=== PATIENT | female | born 1945 | race Caucasian/White ===

== ENCOUNTER 2019-06-22 09:00 | Outpatient (RCR) | payer MEDICARE, SELFPAY | END 2019-07-06 11:39 | disposition home or self-care (01) | LOC: PT.CARL 09:00 | PROVIDERS: Visit Provider Family Medicine | DX: M54.5 Low back pain (principal) | CPT/HCPCS: 97010; 97012; 97014; 97110; 97140; 97163; G0283 ==

== ENCOUNTER → 2019-12-09 10:24 | Outpatient (CLI) | payer MEDICARE, SELFPAY ==
[2019-12-09 16:36] LABS: Alanine Aminotransferase 21 U/L (12-78); Albumin Level 2.7 gm/dL (3.4-5.0); Alkaline Phosphatase 158 U/L (46-116); Aspartate Amino Transferase 23 U/L (15-37); Bilirubin,Direct 0.1 mg/dL (0.0-0.2); Bilirubin,Indirect 0.4 mg/dL (0.0-0.9); Bilirubin,Total 0.5 mg/dL (0.2-1.0); Total Protein,Serum 6.5 gm/dL (6.4-8.2)
== END ==
PROVIDERS: Visit Provider Podiatrist
DX: R94.5 Abnormal results of liver function studies (principal)
CPT/HCPCS: 36415; 80076

== ENCOUNTER 2021-03-06 11:00 | Outpatient (RCR) | payer MEDICARE, SELFPAY | END 2021-03-20 13:48 | disposition home or self-care (01) | LOC: PT.CARL 11:00 | PROVIDERS: Visit Provider Nurse Practitioner Family | DX: M79.604 Pain in right leg (principal) | CPT/HCPCS: 97110; 97140; 97163 ==

== ENCOUNTER 2022-04-11 10:00 | Outpatient (RCR) | payer MEDICARE, SELFPAY ==
--- NOTE | 2022-02-19 13:00 | HMH.PTOPEV ---
PT Outpatient Evaluation Rehab PT Outpatient Evaluation Start: 02/19/22 12:12 Freq: Status: Active Protocol: Document 02/19/22 12:30 [email or web address] (Rec: 02/19/22 13:00 [email or web address] [id number]) Electronically Signed By Carlos Manuel Dupree, PT 02/19/22 12:30 Outpatient Therapy Subjective History Subjective History Pt. is a 76 year old female who presents to [facility] Outpatient Physical Therapy Services for the initial evaluation this date(02/19/22) w/ c/o subacute on chronic and constant B/L lumbar P!, stiffness, and ADL limitations of traumatic onset 2 months ago. Pt. reports falling on her back/buttock region after slipping on ice back in Dec. this year(2021). Pt. denies having recent diagnostic imaging post fall, but states previous MRI(summer 2020) positive for multi-level lumbar DDD. Pt. denies having injections for current c/o symptoms, states her MD recommending injections, but pt. had refused and wanted to trial Physical Therapy first. Pt. reports having LBP! for several years, states having some symptom relief w/ previous Physical Therapy treating her symptoms. However , pt. reported meeting w/ a Neurosurgeon last summer(2020) and was told that she was not a candidate for surgery then. Pt. reports having no symptom relief w/ prescribed Meloxicam nor Cream. Pt. states she is going to contact her MD about discontinuing current Meloxicam at this time secondary to not having any symptom relief and c/o increased stomach P! w/ medicine. Pt. RTMD 03/07/22. Pt. denies having any radicular P! in BLEs nor bowel /bladder dysfunction at this
== END 2022-04-12 10:28 | disposition home or self-care (01) ==
LOC: PT.CARL 10:00
PROVIDERS: Visit Provider Anesthesiology
DX: M51.37 Other intervertebral disc degeneration, lumbosacral region (principal)
CPT/HCPCS: 97010; 97014; 97110; 97140; 97163; 97164; 97530; G0283

== ENCOUNTER 2025-01-08 11:00 | Outpatient (RCR) | payer MEDICARE, SELFPAY | END 2025-01-08 23:59 | disposition home or self-care (01) | LOC: PT 11:00 | PROVIDERS: Visit Provider Orthopaedic Surgery | DX: M17.12 Unilateral primary osteoarthritis, left knee (principal); Z96.652 Presence of left artificial knee joint | CPT/HCPCS: 97010; 97110; 97116; 97140; 97163 ==

== ENCOUNTER 2025-02-04 11:00 | Outpatient (RCR) | payer MEDICARE, SELFPAY | END 2025-02-04 23:59 | disposition home or self-care (01) | LOC: PT 11:00 | PROVIDERS: Visit Provider Orthopaedic Surgery | DX: Z96.652 Presence of left artificial knee joint (principal); M17.12 Unilateral primary osteoarthritis, left knee | CPT/HCPCS: 97110; 97116; 97140; 97530 ==

== ENCOUNTER 2025-02-10 10:52 | Outpatient (RCR) | payer MEDICARE, SELFPAY | END 2025-02-16 17:55 | disposition home or self-care (01) | LOC: PT 10:52 | PROVIDERS: Visit Provider Orthopaedic Surgery | DX: M17.12 Unilateral primary osteoarthritis, left knee (principal); Z96.652 Presence of left artificial knee joint | CPT/HCPCS: 97110; 97530 ==